=== PATIENT | female | born 1955 | race Caucasian/White ===

== ENCOUNTER 2021-12-09 16:23 | Emergency (ER) | payer MEDICAID ==
[~2021-12-09] VITALS: Ht 157.5 cm; Wt 59.0 kg
[2021-12-09] MEDS ORDERED: ONDANSETRON HCL 4MG/2ML INJ IV STA (16:48)
[2021-12-09] MEDS ORDERED: MORPHINE SULFATE 4 MG/ML CPJ (NOT FOR IM USE) IV STA (16:48)
[2021-12-09 18:06] LABS: HEMATOCRIT. 23.9 % (36.0-48.0); HEMOGLOBIN. 7.2 g/dL (12.0-16.0); MEAN CORPUSCULAR VOLUME 86.5 fL (81.0-99.0); MEAN PLATELET VOLUME 9.1 fl (7.4-10.4); PLATELET 201 x1000/uL (130-400); RED BLOOD CELL COUNT 2.77 mill/uL (4.2-5.4); RED CELL DISTRIBUTION WIDTH 22.5 % (11.6-14.6)
[2021-12-09 18:12] LABS: CHLORIDE 103 mEq/L (98-107)
[2021-12-09 18:14] VITALS: BP 148/80
[2021-12-09 19:20] LABS: NUCLEATED RED BLOOD CELLS 1 /100 WBC; PLATELET ESTIMATE NORMAL
== END 2021-12-09 18:25 | disposition home or self-care (01) ==
LOC: ER 16:23
DX: R18.8 Other ascites (principal); R14.0 Abdominal distension (gaseous); R06.02 Shortness of breath
CPT/HCPCS: 36415; 80053; 83690; 85025; 85610; 93005; 99284; J2270; J2405